=== PATIENT | male | born 1985 | race African-American/Black ===

== ENCOUNTER 2018-04-24 13:28 | Emergency (ER) | payer MEDICAID, OTHER ==
[~2018-04-24] VITALS: Ht 203.2 cm; Wt 190.0 kg
[~2018-04-24 13:28] MED LIST: ABX
[2018-04-24 14:10] VITALS: BP 145/79
== END 2018-04-24 16:54 | disposition home or self-care (01) ==
LOC: ER 13:28
DX: S50.861A Insect bite (nonvenomous) of right forearm, initial encounter (principal); E11.9 Type 2 diabetes mellitus without complications; I10 Essential (primary) hypertension; W57.XXXA Bitten or stung by nonvenomous insect and other nonvenomous arthropods, initial encounter; Y93.89 Activity, other specified; Y92.89 Other specified places as the place of occurrence of the external cause; Y99.8 Other external cause status; Z98.890 Other specified postprocedural states
CPT/HCPCS: 99283